=== PATIENT | male | born 1995 | race African-American/Black ===

== ENCOUNTER 2019-06-12 15:12 | Emergency (ER) | payer SELFPAY ==
[2019-06-12] MEDS ORDERED: KETOROLAC TROMETHAMINE 60 MG/2 ML SDV IM ONE (15:54)
--- NOTE | 2019-06-12 15:56 | ER Document Report ---
ED Medical Screen (RME) - General Stated Complaint: SHOULDER PAIN Time Seen by Provider: 06/12/19 15:54 Notes: 23-year-old male presents with left shoulder pain for 3 days. Patient states he thinks it is dislocated. Denies any specific injury. Patient states sometimes his shoulder will feel like it dislocates and move back into place however this time it did not. Tenderness throughout. Patient holding shoulder in adduction. I have greeted and performed a rapid initial assessment of this patient. A comprehensive ED assessment and evaluation of the patient, analysis of test results and completion of the medical decision making process with be conducted by additional ED providers. TRAVEL OUTSIDE OF THE [place] IN LAST 30 DAYS: No - Related Data Allergies/Adverse Reactions: No Known Allergies Allergy (Verified 06/12/19 15:53) Past Medical History - Immunizations Immunizations up to date: No Hx Diphtheria, Pertussis, Tetanus Vaccination: No Physical Exam - Vital signs Vitals: Temp Pulse Resp BP Pulse Ox 98.5 F 92 16 136/77 H 99 06/12/19 15:28 06/12/19 15:28 06/12/19 15:28 06/12/19 15:28 06/12/19 15:28 Course - Vital Signs Vital signs: Temp Pulse Resp BP Pulse Ox 98.5 F 92 16 136/77 H 99 06/12/19 15:28 06/12/19 15:28 06/12/19 15:28 06/12/19 15:28 06/12/19 15:28
--- NOTE | 2019-06-12 16:19 | RADIOLOGY REPORT (SQ) ---
EXAM DESCRIPTION: SHOULDER LEFT 2 OR MORE VIEWS COMPLETED DATE/TIME: 06/12/2019 4:06 pm REASON FOR STUDY: left shoulder pain, possible dislocation COMPARISON: None. NUMBER OF VIEWS: Three views. TECHNIQUE: Internal rotation, external rotation, and Y view images acquired of the left shoulder. LIMITATIONS: None. FINDINGS: MINERALIZATION: Normal. BONES: No acute fracture. No worrisome bone lesions. JOINTS: No dislocation. VISUALIZED LUNGS AND RIBS: No pneumothorax. No rib fracture. SOFT TISSUES: No radiopaque foreign body. OTHER: No other significant finding. IMPRESSION: NO RADIOGRAPHIC EVIDENCE OF ACUTE INJURY. TECHNICAL DOCUMENTATION: JOB ID: [id number] 2010 [employer]- All Rights Reserved Reading location - IP/workstation name: [email or web address]
--- NOTE | 2019-06-12 16:23 | ER Document Report ---
ED General - General Chief Complaint: Shoulder Injury Stated Complaint: SHOULDER PAIN Time Seen by Provider: 06/12/19 15:54 Primary Care Provider: [facility] [Provider Group] - Follow up in 3-5 days SETH GARSIA MD [ACTIVE PROVISIONAL STAFF] - Follow up in 3-5 days ERIC AREVALO MD [ACTIVE STAFF] - Follow up in 3-5 days Notes: 23-year-old male presents with left shoulder pain for 3 days. Patient states he thinks it is dislocated. Denies any specific injury. Patient states sometimes his shoulder will feel like it dislocates and move back into place however this time it did not. Patient denies any pain anywhere else. TRAVEL OUTSIDE OF THE [place] IN LAST 30 DAYS: No - Related Data Allergies/Adverse Reactions: No Known Allergies Allergy (Verified 06/12/19 15:53) Past Medical History - Social History Smoking Status: Current Every Day Smoker Chew tobacco use (# tins/day): No Frequency of alcohol use: None Drug Abuse: None Family History: None Patient has suicidal ideation: No Patient has homicidal ideation: No - Immunizations Immunizations up to date: No Hx Diphtheria, Pertussis, Tetanus Vaccination: No Review of Systems - Review of Systems Notes: Constitutional: Negative for fever. HENT: Negative for sore throat. Eyes: Negative for visual changes. Cardiovascular: Negative for chest pain. Respiratory: Negative for shortness of breath. Gastrointestinal: Negative for abdominal pain, vomiting or diarrhea. Genitourinary: Negative for dysuria. Musculoskeletal: Positive for shoulder pain. Negative for back pain. Skin: Negative for rash. Neurological: Negative for headaches, weakness or numbness. 10 point ROS negative except as marked above and in HPI. Physical Exam - Vital signs Vitals: Temp Pulse Resp BP Pulse Ox 98.5 F 92 16 136/77 H 99 06/12/19 15:28 06/12/19 15:28 06/12/19 15:28 06/12/19 15:28 06/12/19 15:28 - Notes Notes: GENERAL: Well-appearing, well-nourished and in no acute distress. HEAD: Atraumatic, normocephalic. EYES: Extraocular movements intact, sclera anicteric, conjunctiva are normal. NECK: Normal range of motion, supple without lymphadenopathy or JVD. EXTREMITIES: Normal range of motion, no pitting or edema. No clubbing or cyanosis. Left shoulder: Tenderness throughout shoulder, no obvious deformity, pain upon abduction and flexion. NEUROLOGICAL: Cranial nerves II through XII grossly intact. Normal speech, normal gait. PSYCH: Normal mood, normal affect. SKIN: Warm, Dry, normal turgor, no rashes or lesions noted. Course - Re-evaluation Re-evalutation: 06/12/19 23-year-old male presents with left shoulder pain. Patient has pain throughout. Full range of motion with pain upon abduction and flexion. No dislocation. X-ray shows no fracture. Patient given prescription for ibuprofen 800s and referral to Ortho. Return precautions given. Pt voices understanding and agrees with plan of care. - Vital Signs Vital signs: Temp Pulse Resp BP Pulse Ox 98.5 F 92 16 136/77 H 99 06/12/19 15:28 06/12/19 15:28 06/12/19 15:28 06/12/19 15:28 06/12/19 15:28 Discharge - Discharge Clinical Impression: Left shoulder pain Qualifiers: Chronicity: acute Qualified Code(s): M25.512 - Pain in left shoulder Condition: Stable Disposition: HOME, SELF-CARE Instructions: Exercise Program for the Shoulder ([facility]), Shoulder Injury ([facility]) Additional Instructions: Your shoulder x-ray was normal. Please follow-up with the Ortho doctor listed in 3 to 5 days. Please ice your shoulder. Please take ibuprofen as prescribed. Return immediately to ER if you start having any worsening symptoms, including inability to move your shoulder, deformity of your shoulder, fever, pain to her elbow, or any other symptoms that are concerning to you. Prescriptions: Ibuprofen [Motrin 800 mg Tablet] 800 mg PO Q8H PRN #30 tab PRN Reason: Referrals: SETH GARSIA MD [ACTIVE PROVISIONAL STAFF] - Follow up in 3-5 days [facility] [Provider Group] - Follow up in 3-5 days ERIC AREVALO MD [ACTIVE STAFF] - Follow up in 3-5 days
[2019-06-12 17:00] VITALS: BP 137/84
== END 2019-06-12 16:51 | disposition home or self-care (01) ==
LOC: ER 15:12
DX: M25.512 Pain in left shoulder (principal); F17.200 Nicotine dependence, unspecified, uncomplicated
CPT/HCPCS: 99283; 96374; 73030; J1885

== ENCOUNTER 2020-02-24 18:07 | Emergency (ER) | payer SELFPAY ==
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
--- NOTE | 2020-02-24 19:04 | RADIOLOGY REPORT (SQ) ---
EXAM DESCRIPTION: ANKLE LEFT COMPLETE IMAGES COMPLETED DATE/TIME: 02/24/2020 5:37 pm REASON FOR STUDY: pain injury swelling. COMPARISON: None. NUMBER OF VIEWS: Three views. TECHNIQUE: AP, lateral, and oblique radiographic images acquired of the left ankle. LIMITATIONS: None. FINDINGS: MINERALIZATION: Normal. BONES: No acute fracture or dislocation. No worrisome bone lesions. JOINTS: No effusions. SOFT TISSUES: No soft tissue swelling. No foreign body. OTHER: No other significant finding. IMPRESSION: NEGATIVE STUDY OF THE LEFT ANKLE. NO RADIOGRAPHIC EVIDENCE OF ACUTE INJURY. TECHNICAL DOCUMENTATION: JOB ID: [id number] 2010 [employer]- All Rights Reserved Reading location - IP/workstation name: [email or web address]
--- NOTE | 2020-02-24 19:08 | RADIOLOGY REPORT (SQ) ---
EXAM DESCRIPTION: KNEE LEFT 4 VIEW IMAGES COMPLETED DATE/TIME: 02/24/2020 5:37 pm REASON FOR STUDY: pain injury swelling. COMPARISON: None. NUMBER OF VIEWS: Four views. TECHNIQUE: AP, lateral, and both oblique radiographic images acquired of the left knee. LIMITATIONS: None. FINDINGS: MINERALIZATION: Normal. BONES: No acute fracture or dislocation. No worrisome bone lesions. JOINT: No effusion. SOFT TISSUES: No soft tissue swelling. No radio-opaque foreign body. OTHER: No other significant finding. IMPRESSION: NEGATIVE STUDY OF THE LEFT KNEE. NO RADIOGRAPHIC EVIDENCE OF ACUTE INJURY. TECHNICAL DOCUMENTATION: JOB ID: [id number] 2010 [employer]- All Rights Reserved Reading location - IP/workstation name: [email or web address]
[2020-02-24 19:29] VITALS: BP 125/79
== END 2020-02-24 19:42 | disposition home or self-care (01) ==
LOC: ER 18:07
DX: M25.562 Pain in left knee (principal); M25.572 Pain in left ankle and joints of left foot; F17.210 Nicotine dependence, cigarettes, uncomplicated; F12.10 Cannabis abuse, uncomplicated
CPT/HCPCS: 99284

== ENCOUNTER 2020-04-19 00:24 | Emergency (ER) | payer SELFPAY ==
[2020-04-19 00:38] VITALS: BP 135/78
== END 2020-04-19 04:30 | disposition left against medical advice (07) ==
LOC: ER 00:24
DX: Z53.21 Procedure and treatment not carried out due to patient leaving prior to being seen by health care provider (principal)